=== PATIENT | male | born 1965 | race Caucasian/White ===

== ENCOUNTER 2017-09-08 13:59 | Emergency (ER) | payer SELFPAY ==
[~2017-09-08] VITALS: Ht 172.7 cm; Wt 126.0 kg
[~2017-09-08 13:59] MED LIST: GLUCTAB PO; HYDR-3580 PO; PRAV40TA2 PO; SULF-154 PO
[2017-09-08 14:10] VITALS: BP 150/96; PULSE 97; RESP 16; TEMP 97.6; O2SAT 95
[2017-09-08] MEDS ORDERED: SODIUM CHLORIDE 0.9% FLUSH 10 ML FLUSH IVF PRN (14:30)
[2017-09-08 14:50] LABS: AUTOMATED NEUTROPHIL # 4.9 TH/MM3 (1.8-7.7); BASOPHIL # 0.2 TH/MM3 (0-0.2); BASOPHIL % 3.3 % (0.0-2.0); EOSINOPHIL % 0.3 % (0.0-4.0); HEMATOCRIT 46.8 % (39.0-51.0); HEMOGLOBIN 16.5 GM/DL (13.0-17.0); LYMPH % 20.4 % (9.0-44.0); LYMPHOCYTE # 1.5 TH/MM3 (1.0-4.8); MEAN CELL VOLUME 102.5 FL (80.0-100.0); MEAN CORPUSCULAR HEMOGLOBIN 36.1 PG (27.0-34.0); MEAN CORPUSCULAR HGB CONC 35.3 % (32.0-36.0); MEAN PLATELET VOLUME 7.8 FL (7.0-11.0); MONO % 7.7 % (0.0-8.0); MONOCYTE # 0.6 TH/MM3 (0-0.9); NEUT % 68.3 % (16.0-70.0); PLATELET COUNT 198 TH/MM3 (150-450); RED BLOOD COUNT 4.57 MIL/MM3 (4.50-5.90); RED CELL DISTRIBUTION WIDTH 13.9 % (11.6-17.2); WHITE BLOOD COUNT 7.2 TH/MM3 (4.0-11.0)
[2017-09-08 15:00] VITALS: O2SAT 98
--- NOTE | 2017-09-08 15:08 | PD ---
HPI Chief Complaint: Cold / Flu Symptoms Time Seen by Provider: 14:16 Travel History International Travel<30 days: No Contact w/Intl Traveler<30days: No Traveled to known affect area: No History of Present Illness HPI Patient is a 51-year-old male presents emergency department for evaluation of cough productive of green sputum congestion for the past week. Patient states been worsening over the past 2 days. States been feeling chills but no documented fever at home. Also endorses some mild shortness of breath and is feeling weak. Denies any nausea vomiting diarrhea abdominal pain or chest pain. Otherwise healthy did not have a flu vaccine this year PFSH Past Medical History Cancer: No Cardiovascular Problems: No Diabetes: Yes (BORDERLINE) Patient Takes Glucophage: No Diminished Hearing: No Endocrine: Yes Gastrointestinal Disorders: Yes GERD: Yes Genitourinary: No Immune Disorder: No Implanted Vascular Access Dvce: No Musculoskeletal: Yes (BROKEN ANKLE X2) Neurologic: No Psychiatric: No Reproductive: No Respiratory: No Integumentary: Yes (MRSA) Past Surgical History Other Surgery: Yes (wound to groin) Social History Alcohol Use: No Tobacco Use: No Substance Use: No Allergies-Medications (Allergen,Severity, Reaction): Coded Allergies: No Known Allergies (Unverified , 06/28/12) Reported Meds & Prescriptions Reported Meds & Active Scripts Active Proair Hfa 8.5 GM Inh (Albuterol Sulfate) 90 Mcg/Act Aer 2 Puff INH Q4-6H PRN 108 mcg/actuation Prednisone 20 Mg Tab 60 Mg PO DAILY 5 Days Azithromycin 250 Mg Tab 250 Mg PO DIRECTED Take 2 tabs (500 mg) on day 1 then 1 tab daily x 4 days. Review of Systems Except as stated in HPI: all other systems reviewed are Neg Physical Exam Narrative GENERAL: Well-developed morbidly obese in no obvious distress SKIN: Focused skin assessment warm/dry. HEAD: Atraumatic. Normocephalic. EYES: Pupils equal and round. No scleral icterus. No injection or drainage. ENT: No nasal bleeding or discharge. Mucous membranes pink and moist. TMs clear bilaterally, oropharynx clear moist NECK: Trachea midline. No JVD. CARDIOVASCULAR: Regular rate and rhythm. No murmur appreciated. RESPIRATORY: No accessory muscle use. Clear to auscultation. Breath sounds equal bilaterally. GASTROINTESTINAL: Abdomen soft, non-tender, nondistended. Hepatic and splenic margins not palpable. MUSCULOSKELETAL: No obvious deformities. No clubbing. No cyanosis. No edema. NEUROLOGICAL: Awake and alert. No obvious cranial nerve deficits. Motor grossly within normal limits. Normal speech. PSYCHIATRIC: Appropriate mood and affect; insight and judgment normal. Data Data Last Documented VS Vital Signs Date Time Temp Pulse Resp B/P (MAP) Pulse Ox O2 Delivery O2 Flow Rate FiO2 09/08/17 15:00 98 Room Air 09/08/17 14:10 97.6 97 16 150/96 (114) Orders Orders Electrocardiogram (09/08/17 14:27) Complete Blood Count With Diff (09/08/17 14:27) Comprehensive Metabolic Panel (09/08/17 14:27) Magnesium (Mg) (09/08/17 14:27) Prothrombin Time / Inr (Pt) (09/08/17 14:27) Act Partial Throm Time (Ptt) (09/08/17 14:27) Ecg Monitoring (09/08/17 14:27) Iv Access Insert/Monitor (09/08/17 14:27) Oximetry (09/08/17 14:27) Sodium Chloride 0.9% Flush (Ns Flush) (09/08/17 14:30) Chest, Pa & Lat (09/08/17 ) Ed Discharge Order (09/08/17 17:00) Labs Laboratory Tests Test 09/08/17 14:40 09/08/17 15:16 White Blood Count 7.2 TH/MM3 Red Blood Count 4.57 MIL/MM3 Hemoglobin 16.5 GM/DL Hematocrit 46.8 % Mean Corpuscular Volume 102.5 FL Mean Corpuscular Hemoglobin 36.1 PG Mean Corpuscular Hemoglobin Concent 35.3 % Red Cell Distribution Width 13.9 % Platelet Count 198 TH/MM3 Mean Platelet Volume 7.8 FL Neutrophils (%) (Auto) 68.3 % Lymphocytes (%) (Auto) 20.4 % Monocytes (%) (Auto) 7.7 % Eosinophils (%) (Auto) 0.3 % Basophils (%) (Auto) 3.3 % Neutrophils # (Auto) 4.9 TH/MM3 Lymphocytes # (Auto) 1.5 TH/MM3 Monocytes # (Auto) 0.6 TH/MM3 Eosinophils # (Auto) 0.0 TH/MM3 Basophils # (Auto) 0.2 TH/MM3 CBC Comment AUTO DIFF Differential Comment AUTO DIFF CONFIRMED Platelet Estimate NORMAL Platelet Morphology Comment NORMAL Prothrombin Time 11.0 SEC Prothromb Time International Ratio 1.1 RATIO Activated Partial Thromboplast Time 27.1 SEC Blood Urea Nitrogen 7 MG/DL Creatinine 0.64 MG/DL Random Glucose 197 MG/DL Total Protein 6.9 GM/DL Albumin 2.3 GM/DL Calcium Level 7.9 MG/DL Magnesium Level 1.4 MG/DL Alkaline Phosphatase 320 U/L Aspartate Amino Transf (AST/SGOT) 108 U/L Alanine Aminotransferase (ALT/SGPT) 39 U/L Total Bilirubin 1.1 MG/DL Sodium Level 134 MEQ/L Potassium Level 3.5 MEQ/L Chloride Level 95 MEQ/L Carbon Dioxide Level 30.9 MEQ/L Anion Gap 8 MEQ/L Estimat Glomerular Filtration Rate 132 ML/MIN [facility] Medical Decision Making Medical Screen Exam Complete: Yes Emergency Medical Condition: Yes Differential Diagnosis Bronchitis, pneumonia, influenza. Narrative Course Patient room to the emergency department, he appears well in obvious distress, chest x-ray did show some streaky opacities but no obvious consolidation. Influenza testing negative, basic labs are reassuring except for the patient does have a ST elevation and some minimal alk phos elevation. He has no tenderness in his right upper quadrant. Patient does admit he is a fair drinker to me. I discussed this with him and recommended that he stop drinking as it is causing some damage to his liver. He will be referred outpatient to follow-up I discussed that he needs to drink and have these labs repeated in the near future and need to consider further outpatient workup. For his cough and congestion will be treated like bronchitis. Discussed symptomatic management return to ED criteria. He stable for discharge. Diagnosis Primary Impression: Bronchitis Additional Impression: Transaminitis Referrals: [facility] Med/Other Pt SpecificInfo: Prescription(s) given Scripts Albuterol 8.5 GM Inh (Proair Hfa 8.5 GM Inh) 90 Mcg/Act Aer 2 PUFF INH Q4-6H Y for SHORTNESS OF BREATH, #1 INHALER 0 Refills 108 mcg/actuation Prov: Sal Ferrell MD 09/08/17 Prednisone (Prednisone) 20 Mg Tab 60 MG PO DAILY for 5 Days, #15 TAB 0 Refills Prov: Sal Ferrell MD 09/08/17 Azithromycin (Azithromycin) 250 Mg Tab 250 MG PO DIRECTED for Infection, #6 TAB 0 Refills Take 2 tabs (500 mg) on day 1 then 1 tab daily x 4 days. Prov: Sal Ferrell MD 09/08/17 Disposition: 01 DISCHARGE HOME Condition: Stable Sal Ferrell MD Sep 08, 2017 15:08
[2017-09-08 15:30] LABS: INTERNATIONAL NORMALIZED RATIO 1.1 RATIO
[2017-09-08 15:54] LABS: CHLORIDE 95 MEQ/L (98-107); SODIUM (NA) 134 MEQ/L (136-145)
[2017-09-08 15:57] LABS: ALBUMIN 2.3 GM/DL (3.4-5.0); BICARBONATE 30.9 MEQ/L (21.0-32.0); BLOOD UREA NITROGEN 7 MG/DL (7-18); CALCIUM 7.9 MG/DL (8.5-10.1); GLUCOSE,RANDOM 197 MG/DL (74-106); MAGNESIUM 1.4 MG/DL (1.5-2.5)
[2017-09-08 16:00] LABS: ALT (GPT) 39 U/L (12-78); AST (GOT) 108 U/L (15-37)
[2017-09-08 16:01] LABS: CREATININE 0.64 MG/DL (0.60-1.30); GLOMERULAR FILTRATION RATE 132 ML/MIN (>89)
[2017-09-08 16:02] LABS: TOTAL BILIRUBIN ADULT 1.1 MG/DL (0.2-1.0); TOTAL PROTEIN 6.9 GM/DL (6.4-8.2)
[2017-09-08 16:03] LABS: ALKALINE PHOSPHATASE 320 U/L (45-117)
--- NOTE | 2017-09-08 16:57 | RADRPT ---
EXAM DATE/TIME: 09/08/2017 16:26 [place] COMPARISON: No previous studies available for comparison. INDICATIONS : Shortness of breath- Flu like symptoms. MEDICAL HISTORY : Gastroesophageal reflux disease. Diabetes. SURGICAL HISTORY : None. ENCOUNTER: Initial ACUITY: 2 days PAIN SCORE: 3/10 LOCATION: Bilateral chest FINDINGS: Heart is minimally enlarged. Mild interstitial changes are evident. There is no consolidation, pneu mothorax or pleural effusion. Mild degenerative changes thoracic spine. CONCLUSION: Mild interstitial prominence, nonspecific. Manuelito Elizabeth MD FACR on September 08, 2017 at 16:55 Board Certified Radiologist. This report was verified electronically.
[2017-09-08] MEDS ORDERED: AZIT250T3 PO (17:01)
[2017-09-08] MEDS ORDERED: PRED20 PO (17:01)
[2017-09-08] MEDS ORDERED: ALBUAER3 INH (17:12)
--- NOTE | 2017-09-09 10:51 | EKG ---
Date Performed: 09/08/2017 Time Performed: 14:58:34 PTAGE: 51 years EKG: Sinus rhythm WITH SHORT NH INTERVAL BORDERLINE LEFT AXIS DEVIATION NONSPECIFIC T-WAVE ABNORMALITY BORDERLINE ECG PREVIOUS TRACING : 03/10/2012 11.03 DOCTOR: Venkat Da Silva Interpretating Date/Time 09/09/2017 10:50:22
== END 2017-09-08 17:42 | disposition home or self-care (01) ==
LOC: PHED 13:59
DX: J40 Bronchitis, not specified as acute or chronic (principal); R94.31 Abnormal electrocardiogram [ECG] [EKG]; R06.02 Shortness of breath; R73.03 Prediabetes; K21.9 Gastro-esophageal reflux disease without esophagitis
CPT/HCPCS: 71046; 80053; 83735; 85025; 85610; 85730; 93005; 99285